=== PATIENT | male | born 1940 | race Caucasian/White ===

== ENCOUNTER 2025-03-12 07:49 | Outpatient (CLI) | payer MEDICARE, SELFPAY ==
--- OUTSIDE RECORDS SUMMARY | 2024-11-22 03:30 | XMS_ITS ---
Author Organization 1 OF Bambi juárez DPM [facility] Address [address] [place] [address] Care Team Providers Care Warehouse Shipping Receiving Clerk Name Role Phone Santiago Dempsey Primary Care Provider Glenis Martinez Unavailable [phone] REASON FOR VISIT Qutenza debra Encounters Encounter Location Date Provider Diagnosis 1 OF [facility] [address] [place] [address] 11/22/2024 Glenis Ceron Plan Of Treatment Next Appt Details Provider Name:Glenis Ceron, 04/17/2025 08:00:00 AM, [address], [address], [place], [address], Progress Notes * Rob CHRISTY ADOB:1940 (84 yo M)Acc No.[id number]:11/22/2024 Progress Note Patient: Rob GARDNER Provider: Luh Ceron DPM :1940 A ge:84 Y S ex:Male Date:11/22/2024 Address:[address] Pcp:Santiago Dempsey Subjective: * Chief Complaints: * 1 . Qutenza debra. * Medical History: Objective: * Vitals: Assessment: Plan: * Treatment: * Images: * Electronic signature of Ileana Ceron DPM on 03/12/2025 at 08:23 AM CDT Sign off status: Pending * Provider: Luh Ceron DPM Date: 0 11/22/2024 Generated for Perla thorne/Flaco/Jorge on: 0 03/12/2025 08:23 AM CDT
--- OUTSIDE RECORDS SUMMARY | 2025-03-12 08:23 | XMS_ITS | Patient Health Record ---
Author Organization 1 OF Bambi juárez [facility] Address [address] [facility] [address] [place] [address] Care Team Providers Care Rubber Engraver Name Role Phone Santiago Dempsey Primary Care Provider Unavail able Glenis Ceron Unavailable [phone] Allergies Allergen (clinical drug ingredient) Drug/Non Drug Allergy documented on EMR Reaction Allergy Type Onset Date Status empagliflozin Jardiance Unknown Drug Allergy Act montrell gabapentin Gabapentin Unknown Drug Allergy Activ e Reason For Referral No Information Medications Medication SIG (Take, Route, Fr equency, Duration) Notes Start Date End Date Status Ozempic Active Lyrica Active Xarelto Active Atorvastatin Calcium Active Metoprolol Tartrate Active tiZANidine HCl Activ e Finasteride Active traMADol HCl Active Lisinopril Active Pregabalin Active Social History Tobacco Use: Social History Observation Description Date Details (start date - stop date) Never Smoker NA - NA Tobacco Use/Smoking Question Answer Notes Are you a nonsmoker Problems Problem Type SNOMED Code ICD Code Onset Dates Problem Status W/U Status Risk Notes Problem Diabetic peripheral neuropathy associated with type 2 diabetes mellitus (0662148337538) Painful diabetic neuropathy (E11.40) Active confirmed Problem Polyneuropathy due to type 2 diabetes mellitus (758183190) 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) Active confirmed Problem Polyneuropathy due to type 2 diabetes mellitus (037241621) Type 2 diabetes mellitus with diabetic polyneuropathy, unspecified whether intermediate insulin use (E11.42) Active confirmed Problem Neuropathic pain (finding) (678946572) Neuropathic pain of both feet (G57.93) Active confirmed Problem Amputated foot (638411488) 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) Active confirmed Vital Signs Height 73 in 02/06/2025 Weight 218 lbs 02/06/2025 BMI 28.76 kg/m2 02/06/2025 Encounters Encounter Location Date Provider Diagnosis 1 OF Bambi Sanchez [place] [address] [place] [address] 04/12/2024 Glenis Strangea Callus L84 ; Type 2 diabetes mellitus with diabetic polyneuropathy, unspecified whether moth exterminator insulin use E11.42 ; 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 ; Onychogryphosis L60.2 and Neuropathic pain of both feet G57.93 1 OF Babmi Rojas [place] [address] [place] [address] 05/03/2024 Glenis Ceron Type 2 diabetes jayde itus with peripheral neuropathy E11.42 ; Neuropathic pain of both feet G57.93 ; Right foot pain M79.671 and Left foot pain M79.672 1 OF Bambi Rojas [place] [address] [place] [address] 07/05/2024 Glenis Strangea Callus L84 ; Type 2 diabetes mellitus with diabetic polyneuropathy, unspecified whether intermediate insulin use E11.42 ; 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 ; Onychogryphosis L60.2 and Neuropathic pain of both feet G57.93 1 OF Bambi Rojas [place] [address] [place] [address] 07/05/2024 Glenis Ceron Type 2 diabetes jayde itus with diabetic polyneuropathy, unspecified whether moth exterminator insulin use E11.42 1 OF Bambi Rojas [place] [address] [place] [address] 08/02/2024 Glenis Ceron Type 2 diabetes jayde itus with diabetic polyneuropathy, unspecified whether intermediate insulin use E11.42 1 OF Bambi Rojas [place] [address] [place] [address] 08/23/2024 Glenis Ceron Type 2 diabetes jayde itus with peripheral neuropathy E11.42 and Neuropathic pain of both feet G57.93 1 OF Bambi Rojas [place] [address] [place] [address] 09/20/2024 Glenis Ceron Callus L84 ; Type 2 diabetes mellitus with diabetic polyneuropathy, unspecified whether moth exterminator insulin use E11.42 ; 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 ; Onychogryphosis L60.2 and Neuropathic pain of both feet G57.93 1 OF Bambi Sanchez [facility] [address] [place] [address] 11/29/2024 Glenis Ceron Callus L84 ; Type 2 diabetes mellitus with diabetic polyneuropathy, unspecified whether moth exterminator insulin use E11.42 ; 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 and Onychogryphosis L60.2 1 OF Bambi Sanchez [place] [address] [place] [address] 02/06/2025 Glenis Ceron Callus L84 ; Type 2 diabetes mellitus with diabetic polyneuropathy, unspecified whether moth exterminator insulin use E11.42 ; 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 Pt would like to proceed the procedure. 05/03/2024 Neuropathic pain of both feet (ICD-10 - G57.93) 07/05/2024 Type 2 diabetes mellitus with diabetic polyneuropathy, unspecified whether intermediate insulin use (ICD-10 - E11.42) 07/05/2024 Callus (ICD-10 - L84) 08/02/2024 Type 2 diabetes mellitus with diabetic polyneuropathy, unspecified whether intermediate insulin use (ICD-10 - E11.42) 08/23/2024 Type 2 diabetes mellitus with peripheral neuropathy (ICD-10 - E11.42) Dicussed Qutenza procedure and potential side effects. Pt would like to proceed the procedure. 09/20/2024 Callus (ICD-10 - L84) 11/29/2024 Callus (ICD-10 - L84) 02/06/2025 Callus (ICD-10 - L84) 02/06/2025 Type 2 diabetes mellitus with diabetic polyneuropathy, unspecified whether intermediate insulin use (ICD-10 - E11.42) Considering the associated comorbidities and physical exam findings today, this patient is at substantial risk of developing serious foot complications in the absence of regular and professional palliative foot care. 11/29/2024 Onychodystrophy (ICD-10 - L60.3) 11/29/2024 Type 2 diabetes mellitus with diabetic polyneuropathy, unspecified whether intermediate insulin use (ICD-10 - E11.42) Considering the associated comorbidities and physical exam findings today, this patient is at substantial risk of developing serious foot complications in the absence of regular and professional palliative foot care. 09/20/2024 Type 2 diabetes mellitus with diabetic polyneuropathy, unspecified whether moth exterminator insulin use (ICD-10 - E11.42) Considering the associated comorbidities and physical exam findings today, this patient is at substantial risk of developing serious foot complications in the absence of regular and professional palliative foot care. 08/23/2024 Neuropathic pain of both feet (ICD-10 - G57.93) 07/05/2024 Type 2 diabetes mellitus with diabetic polyneuropathy, unspecified whether moth exterminator insulin use (ICD-10 - E11.42) Considering the associated comorbidities and physical exam findings today, this patient is at substantial risk of developing serious foot complications in the absence of regular and professional palliative foot care. 04/12/2024 Type 2 diabetes mellitus with diabetic polyneuropathy, unspecified whether moth exterminator insulin use (ICD-10 - E11.42) Considering the associated comorbidities and physical exam findings today, this patient is at substantial risk of developing serious foot complications in the absence of regular and professional palliative foot care. 05/03/2024 Right foot pain (ICD-10 - M79.671) 04/12/2024 Onychodystrophy (ICD-10 - L60.3) 05/03/2024 Left foot pain (ICD-10 - M79.672) 07/05/2024 Onychodystrophy (ICD-10 - L60.3) 09/20/2024 Onychodystrophy (ICD-10 - L60.3) 11/29/2024 Onychogryphosis (ICD-10 - L60.2) 02/06/2025 Onychodystrophy (ICD-10 - L60.3) 02/06/2025 Onychogryphosis (ICD-10 - L60.2) 09/20/2024 Onychogryphosis (ICD-10 - L60.2) 07/05/2024 Onychogryphosis (ICD-10 - L60.2) 04/12/2024 Onychogryphosis (ICD-10 - L60.2) 04/12/2024 Neuropathic pain of both feet (ICD-10 - G57.93) 07/05/2024 Neuropathic pain of both feet (ICD-10 - G57.93) Evaluation today included a review of medical history, review of systems, discussion of exam findings, and review of diagnoses and treatment options. Recommended continuing with the Qutenza treatments. He did not have any side effects after the second treatment. I answered his questions regarding the topical pain cream from care [employer].He was advised he can call the company for refills. 09/20/2024 Neuropathic pain of both feet (ICD-10 - G57.93) Evaluation today included a review of medical history, review of systems, discussion of exam findings, and review of diagnoses and treatment options. He has one more treatment of Qutenza remaining. He is unsure if he would like to proceed. I discussed that the treatment may or may not help his symptoms long-term. He will call back if he would like to cancel the appointment. 11/29/2024 Other Plan Of Treatment Next Appt Details Provider Name:Glenis Ceron, 04/17/2025 08:00:00 AM, [address] [facility], [place], [address], Insurance Providers Payer Name Payer Address Payer Phone Subscriber Number Group Number Insured Name Patient Relationship to Insured Coverage Start Date Coverage End Date Medicare [address] [place] [id number] Rob Kim A Self - patient is the insured [facility] [address] [address] [place] [address] [id number] Rob Kim Self - patient is the insured Medical (General) History Medical History History ICD Code Arthritis, LT leg blood clot , Diabetes, High cholesterol, HBP, neuropathy in feet, back pain Depression Blood clot Surgical History Surgery Date(Month/Year) Transmetatarsal Amputation of the LT juma t Evacuation of Arterial clot above the Kn ee LT leg Foot/Ankle surgery Vascular sugery
--- OUTSIDE RECORDS SUMMARY | 2025-03-12 08:24 | XMS_ITS | Clinical Summary ---
Author Organization [facility] Address [address], [facility] [address] [place] [address] Phone Care Team Providers Care Order Desk Caller Name Role Phone Edison Vicente MD Primary Care Provider Star robin Allergies Active Allergy Reactions Criticality Noted Date Comments Duloxetine Nausea 12/09/2020 Medications rivaroxaban (XARELTO) 20 MG Tablet Take 20 mg by mouth daily (with dinner). Take with food. Active atorvastatin (LIPITOR) 20 MG Tablet Take 20 mg by mouth daily. Active metoprolol Succinate (TOPROL-XL) 50 MG TABLET SR 24 HR Take 50 mg by mouth daily. Active finasteride (PROSCAR) 5 MG Tablet Take 5 mg by mouth. 9 Active traMADol (ULTRAM) 50 MG Tablet Take 50 mg by mouth. 2 Active lisinopril (PRINIVIL, ZESTRIL) 2.5 MG Tablet Take 1 tablet by mouth once daily 2 Active augmented betamethasone dipropionate (DIPROLENE-AF) 0.05 % Ointment Thin layer twice a day as needed for rash. No longer than 2 weeks in a row. 1 Active acetaminophen (TYLENOL) 500 MG Tablet Take 1,000 mg by mouth. Active TIZANIDINE HCL PO Take 2 mg by mouth daily. Active Active Problems Patient Care Coordination No te Formatting of this note migh t be different from the original. 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 (12/22/2021): left SFA-PA, required thrombectomy Thoracic radiculopathy 07/28/2018 Status post transmetatarsal amputation of foot, left 02/16/2017 Coronary atherosclerosis 06/27/2014 Overview (12/22/2021): medical management Immunizations Immunization Administration Dates Next Due Influenza Vaccine,unspecifie d Formulation 04/08/2021,03/28/2019,03/17/2018,2016,05/13/2015,04/02/2014 Influenza, high-dose, trivalent, PF 04/02/2020,0 03/02/2016 Pneumococcal Vaccine - 13 Valent 04/02/2020,08/0 08/2015 Pneumococcal Vaccine Adult - 23 Valent 04/26/2014,02/01/2013 TDAP Vaccine 09/09/2021,05/14/2014,02/15/2012 Zoster Vaccine, live 10/13/2012 Family History Medical History Relation Name Comments Prostate Cancer Brother Cancer Father Diabetes Mother Heart Disease Mother Relation Name Status Comments Brother Father brain cancer Mother Social History Tobacco Use Types Packs/Day Years Used Date Smoking Tobacco: Never Smokeless Tobacco: Never Tobacco Cessation:Counseling Given: Not Answered Alcohol Use Standard Drinks/Week Comments Yes 4 (1 standard drink = 0.6 oz pur e alcohol) PHQ-2 Answer Date Recorded Total Score - Questions 1-9 0 11/26 Sex and Gender Information Value Date Recorded Sex Assigned at Not on file Legal Sex Male 8:25 AM PUBLIC FINANCE SPECIALIST Gender Identity Not on file Sexual Orientation Not on file Last Filed Vital Signs Vital Sign Reading Time Taken Comments Blood Pressure 130/80 07/28/2022 8:39 AM PUBLIC FINANCE SPECIALIST Pulse 79 07/28/2022 8:39 AM PUBLIC FINANCE SPECIALIST Temperature 36.5 C (97.7 F) 07/28/2022 8:39 AM PUBLIC FINANCE SPECIALIST Respiratory Rate - - Oxygen Saturation 93% 07/28/2022 8:39 AM PUBLIC FINANCE SPECIALIST Inhaled Oxygen Concentration - - Weight 98.9 kg (218 lb) 07/28/2022 8:39 AM PUBLIC FINANCE SPECIALIST Height 185.4 cm (6' 1) 07/28/2022 8:39 AM PUBLIC FINANCE SPECIALIST Body Mass Index 28.76 07/28/2022 8:39 AM PUBLIC FINANCE SPECIALIST Plan of Treatment Health Maintenance Due Date Last Done Comments Diabetes: Eye Exam 1940 Diabetes: Foot Exam 1940 Hepatitis C Virus (HCV) Screening 1940 Zoster Immunization (2 of 3) 12/08/2012 10/13/2012 Respiratory Syncytial Virus (RSV) Immunization (Adult) (1 - 1-dose 75+ series) 2017 Diabetes: Hemoglobin A1c 05/05/2022 11/02/2021 Diabetes: Nephropathy Screening 11/02/2022 11/02/2021, 09/13/2018 Influenza Immunization (#1) 02/25/202502/26, 04/08/2021, 04/02/2020, Additional history exists SARS-COV-2 Immunization ( season) 2025 03/24/2022, 05/11/2021, 08/27/2020, Additional history exists Pneumococcal Immunization (50+ years) Completed 04/02/2020, 01/28/2016, 04/26/2014, Additional history exists Pneumococcal Immunization Combined Discontinued 04/02/2020, 01/28/2016, 04/26/2014, Additional history exists DTaP/Tdap/Td Immunization Discontinued 2021, 05/14/2014, 02/15/2012 Hepatitis B Immunization Aged Out No longer eligible based on patient's age to complete this topic Human Papillomavirus (HPV) Immunization Aged Out No longer eligible based on patient's age to complete this topic Meningococcal Immunization (ACWY) Aged Out No longer eligible based on patient's age to complete this topic Rotavirus Immunization Aged Out No lo nger eligible based on patient's age to complete this topic Procedures Procedure Name Priority Date/Time Associated Diagnosis Comments CMP (COMPREHENSIVE METABOLIC PANEL) Routine 09/13/2018 Arterial thrombosis (HCC) Elevated PSA from Last 3 Months or Most Recently Relevant to Health Maintenance Results * CMP (COMPREHENSIVE METABOLIC PANEL) (09/13/2018) Blood specimen (specimen) us Ousmane Hammonds DO CHEMISTRY ORDERABLES Final Res ult [facility] [address] [place] [address], from Last 3 Months or Most Recently Relevant to Health Maintenance Insurance MEDICARE Care Teams Order Desk Caller Relationship Specialty Start Date End Date Edison Vicente MD PCP - General Family Medicine 08/21/18
--- OUTSIDE RECORDS SUMMARY | 2025-03-12 08:24 | XMS_ITS | Clinical Summary ---
Author Organization [facility] Address [address] [place] [address] Care Team Providers Care Range Master Name Role Phone Unavailable Primary Care Provider Unavailabl e Source Comments [facility],non-owned Affiliates and Associated Physician Practices is amultiple site organization consisting of ambulatory clinics and hospital sitesin [place], [place], [place] and [place]. This disclosure is being madepursuant to the Care Everywhere program and may not contain all information available regarding this patient. Last updated 18.[facility] Social History Tobacco Use Types Packs/Day Years Used Date Smoking Tobacco: Never Assessed Sex and Gender Information Value Date Recorded Sex Assigned at Not on file Legal Sex Male 6:05 AM PRODUCT CONSULTANT Gender Identity Not on file Sexual Orientation Not on file Plan of Treatment Health Maintenance Due Date Last Done Comments DTAP/TDAP/TD VACCINES (1 - Tdap) 1961 PNEUMOCOCCAL VACCINE 50+ (1 of 1 - PCV) 1992 ZOSTER VACCINE (1 of 2) 1992 Respiratory Syncytial Virus (RSV) Vaccine Pt: or over 60 yrs (1 - 1-dose 75+ series) 2017 DEPRESSION SCREENING 06/27/2024 COVID-19 VACCINE (1 - 2023-2 5 season) 2025 INFLUENZA VACCINE (#1) 2025 HEPATITIS B VACCINE Aged Out No longe r eligible based on patient's age to complete this topic HIB VACCINE Aged Out No longer eligi ble based on patient's age to complete this topic HPV VACCINE Aged Out No longer eligi ble based on patient's age to complete this topic MENINGOCOCCAL (Group B) VACC INE SHARED DECISION-MAKING Aged Out No longer eligibl e based on patient's age to complete this topic MENINGOCOCCAL GROUPS A/C/Y/W VACCINE Aged Out No longer eligible b ased on patient's age to complete this topic
== END 2025-03-12 07:50 | disposition home or self-care (01) ==
LOC: ANHAUDIO 07:50
PROVIDERS: Visit Provider Otolaryngology
DX: H90.3 Sensorineural hearing loss, bilateral (principal); H69.91 Unspecified Eustachian tube disorder, right ear; H65.491 Other chronic nonsuppurative otitis media, right ear
CPT/HCPCS: 92557; 92567; 99199

== ENCOUNTER 2025-06-06 09:00 | Outpatient (RCR) | payer MEDICARE, SELFPAY | END 2025-06-06 23:59 | disposition home or self-care (01) | LOC: ANHAUDIO 09:00 | DX: Z46.1 Encounter for fitting and adjustment of hearing aid (principal) | CPT/HCPCS: 99199; V5160 ==